=== PATIENT | male | born 1975 | race Caucasian/White ===

== ENCOUNTER 2016-11-17 03:56 | Emergency (ER) | payer SELFPAY ==
[~2016-11-17] VITALS: Ht 167.6 cm; Wt 81.6 kg
[2016-11-17 03:56] VITALS: BP_SYST 133
[2016-11-17 05:47] LABS: BILIRUBIN,URINE 1+ (NEGATIVE); BLOOD, URINE NEGATIVE (NEGATIVE); CLARITY/URINE CLEAR (CLEAR); COLOR,URINE YELLOW (YELLOW); GLUCOSE,URINE NEGATIVE (NEGATIVE); KETONES,URINE TRACE (NEGATIVE); LEUKOCYTE ESTERASE ,URINE NEGATIVE (NEGATIVE); NITRITE, URINE NEGATIVE (NEGATIVE); PROTEIN URINE TRACE (NEGATIVE)
[2016-11-17 05:58] LABS: RBC,URINE 0-3 /HPF (0-3); WBC,URINE 0-3 /HPF (0-3)
[2016-11-17 05:59] LABS: BACTERIA,URINE FEW /HPF (None Seen); CALCIUM OXALATE CRYSTALS,UR 0-10 /HPF (None Seen)
[2016-11-17 06:00] LABS: MUCUS,URINE 1+ /LPF (None Seen)
[2016-11-17 06:21] VITALS: BP_SYST 126
[2016-11-20 14:04] LABS: CHLAMYDIA TRACHOMATIS NAA Negative (Negative)
[2016-11-20 20:56] LABS: NEISSERIA GONORRHOEAE NAA Negative (Negative)
== END 2016-11-17 06:21 | disposition home or self-care (01) ==
LOC: SED 03:56
DX: B35.3 Tinea pedis (principal); Z11.3 Encounter for screening for infections with a predominantly sexual mode of transmission; F20.9 Schizophrenia, unspecified
CPT/HCPCS: 81000-TC; 87491; 87591; 99284